=== PATIENT | male | born 1995 | race Caucasian/White ===

== ENCOUNTER 2023-01-07 11:41 | Outpatient (REF) | payer OTHER, SELFPAY | END 2023-01-07 11:42 | disposition home or self-care (01) | LOC: HO.CHCLDS 11:41 | PROVIDERS: Visit Provider Student in an Organized Health Care Education/Training Program | DX: R53.83 Other fatigue (principal); N04.9 Nephrotic syndrome with unspecified morphologic changes; E78.5 Hyperlipidemia, unspecified | CPT/HCPCS: 36415; 80048; 80061; 80076; 84443 ==

== ENCOUNTER 2023-03-09 11:35 | Outpatient (REF) | payer MEDICAID, SELFPAY ==
[2023-03-09 14:45] LABS: Alanine Aminotransferase 97 U/L (0-40); Albumin Level 3.9 g/dL (3.5-5.0); Alkaline Phosphatase 52 U/L (39-117); Anion Gap 9 (12-20); Aspartate Amino Transferase 37 U/L (5-37); Bilirubin Total 0.6 mg/dL (0.0-1.0); Blood Urea Nitrogen 14 mg/dL (9-16); Calcium 9.2 mg/dL (8.4-10.2); Carbon Dioxide 27 mmol/L (22-29); Chloride 107 mmol/L (96-108); Estimated Glomerular Filt Rate > 60; Glucose Random 79 mg/dL (60-115); Potassium 4.2 mmol/L (3.3-5.1); Sodium 139 mmol/L (135-145); Total Protein 6.8 g/dL (6.5-8.0)
[2023-03-10 04:37] LABS: ~HepC Num1 0.35 S/CO (0.00-0.79); ~Hepatitis C Antibody Nonreactive (Nonreactive)
[2023-03-10 04:47] LABS: HIV AB/AG Nonreactive (Nonreactive); HIV Num 1 0.05 S/CO (0.00-0.99)
== END 2023-03-09 11:36 | disposition home or self-care (01) ==
LOC: HO.CHCLDS 11:35
PROVIDERS: Visit Provider Family Medicine
DX: Z11.4 Encounter for screening for human immunodeficiency virus [HIV] (principal); R74.01 Elevation of levels of liver transaminase levels
CPT/HCPCS: 36415; 80053; 86803; 87389

== ENCOUNTER 2024-07-31 18:30 | Outpatient (REF) | payer MEDICAID, SELFPAY ==
--- OUTSIDE RECORDS SUMMARY | 2024-08-01 13:07 | XMS_ITS | Encounter Summary ---
Author Organization [employer] Address [address] [facility] 7t [place] [address] Care Team Providers Care Button Sawyer Name Role Phone Iesha Justice MD Primary Care Provider [phone] Encounter Details Date Type Department Care Team (Latest Contact Info) Description 07/31/2024 Travel Social History Tobacco Use Types Packs/Day Years Used Date Smoking Tobacco: Never Passive Smoke Exposure: Never Smokeless Tobacco: Never Alcohol Use Standard Drinks/Week Comments Never 0 (1 standard drink = 0.6 oz pur e alcohol) Sex and Gender Information Value Date Recorded Sex Assigned at Male 01/06/2023 3:08 PM EDT Legal Sex Male 3:04 PM EDT Gender Identity Male 01/06/2023 3:08 PM EDT Sexual Orientation Straight 01/06/2023 3: 08 PM EDT documented as of this encounter Plan of Treatment Not on file documented as of this encounter Visit Diagnoses Not on filedocumented in this encounter Care Teams Button Sawyer Relationship Specialty Start Date End Date Iesha Justice MD [address] [place] [address] PCP - General Family Medicine 03/03/23 documented as of this encounter
--- OUTSIDE RECORDS SUMMARY | 2024-08-01 13:07 | XMS_ITS | Encounter Summary ---
Author Organization [employer] Address [address] [facility] 7t [place] [address] Care Team Providers Care Band Ripsaw Operator Name Role Phone Iesha Justice MD Primary Care Provider [phone] Reason for Visit * Reason Onset Date Comments Nurse Triage 07/31/2024 Encounter Details Date Type Department Care Team ([facility] st Contact Info) Description 07/31/2024 Telephone [facility] MED[facility]INE [address] [place] [address] Iesha Justice MD [address] [place] [address] Nurse Triage Social History Tobacco Use Types Packs/Day Years [...] PM EDT documented as of this encounter Miscellaneous Notes * Telephone Encounter - Jazmine Brown RN - 07/31/2024 3:07 PM EDT Call returned to Sriram Clifford to triage below. Reports having pain on left testicles x few weeks. Pt also having pain on lower pelvic area. No redness, rash or noted swelling. Pt havinglower back pain over the weekend. Per pt still having mild back pain. Pt is having foamy urine. No odor, pain or burning with passing urine. Pt stopped Farxiga per recommendation of Psychiatric Rn. Last dose yesterday. Pt did have mild dizziness on Tuesday. No N/V or fever today. Pt advised of disposition, agrees to seek [facility] for exam as no sick on site availability on teams at time of call. Reviewed [facility] operating hours and that wait times vary. Reviewed home care advise, ER precautions and reasons to call back. Multiple (2) protocols were used on this call. Disposition for Call: See in Office or Video Visit Today Protocol Used: Scrotum Pain (Adult) Protocol-Based Disposition: See in Office or Video Visit Today Positive Triage Question: * Pain comes and goes (intermittent) and present > 24 hours * All higher-acuity triage questions were negative Protocol Used: Flank Pain (Adult) Protocol-Based Disposition: See in Office or Video Visit within 3 Days Positive Triage Question: * Mild pain (i.e., scale 1-3; does not interfere with normal activities) and present > 3 days * All higher-acuity triage questions were negative Care Advice Discussed: * Reassurance and Education - Flank Pain From Minor Injury * Reasons To Call Back - Fever over 100.4 F (38.0 C) - Burning with urination or blood in urine - You become worse * Telephone Encounter - Ana Macias - 07/31/2024 2:41 PM EDT Symptom: Testicle Symptoms Outcome: Talk to a nurse or provider within 15 minutes Reason: Pain in the testicle The caller accepted this outcome. documented in this encounter Plan of Treatment Not on file documented as of this encounter Visit Diagnoses Not on filedocumented in this encounter Care Teams Band Ripsaw Operator Relationship Specialty Start Date End Date Iesha Justice MD [address] [place] [address] PCP - General Family Medicine 03/03/23 documented as of this encounter
--- OUTSIDE RECORDS SUMMARY | 2024-08-01 13:07 | XMS_ITS | Clinical Summary ---
Author Organization [facility] Address [address] [address] Phone Care Team Providers Care Machine Assembler Supervisor Name Role Phone Iesha Justice MD Primary Care Provider [phone] Allergies Active Allergy Reactions Criticality Noted Date Comments Shrimp Extract Other (see comments) 08/22/2015 Medications furosemide (LASIX) 20 MG tablet Take 20 mg by mouth 1 (one) time each day Active Farxiga 10 MG tablet TAKE 1 TABLET BY MOUTH 1 (ONE) TIME EACH DAY IN THE MORNING 90 tablet 3 5 Active Additional Information Patient not taking.Reported on 08/01/2024 lisinopril 10 MG tabletIndicatio ns:IgA nephropathy,Per sistent proteinuria,Hem aturia syndrome,Acute cystitis without hematuria, not otherwise specified TAKE 2 TABLETS BY MOUTH EVERY DAY 180 tablet 5 Active Additional Information Patient not taking.Reported on 08/01/2024 lisinopril 5 MG tablet Take 1 tablet (5 mg total) by mouth 1 (one) time each day 90 tablet 3 5 08/02/19 26 Active Active Problems Problem Noted Date Diagnosed Date 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 [address] [address] Roger Ruelas MD IgA nephropathy (Primary Dx); Persistent proteinuria; Hematuria syndrome; Acute cystitis without hematuria, not otherwise specified 07/30/2024 Office Communication [facility] [address] [facility] [address] [place] [address] Kelsey, Addy 05/16/2024 Refill [facility] [address] [place] [address] Roger Ruelas MD IgA nephropathy; Persistent proteinuria; Hematuria syndrome; Acute cystitis without hematuria, not otherwise specified from Last 3 Months Immunizations Immunization Administration Dates Next Due DTaP 06/08/2002, 9,02/18/1998,07/30/1997,0 05/31/1997,04/03/1997 DTaP / HiB / IPV 02/18/1998,07/30/1997, 8,04/03/1997 HPV, Unspecified 10/20/2016,08/22/2015 Hep B, Adolescent or Pediatric 07/30/1997,1996,1996 IPV 07/03/1998,03/18/1998,05/31/1997 ,04/03/1997 MMR 04/25/2001,02/18/1998 Meningococcal MCV4P 11/12/2011 Tdap 05/20/2008 Varicella 07/21/2010,06/16/1999 Family History Medical History Relation Comments Cancer Mother Relation Status Comments Mother Social History Tobacco Use Types Packs/Day Years Used Date Smoking Tobacco: Never Smokeless Tobacco: Never Tobacco Cessation:Counseling Given: Not Answered Alcohol Use Standard Drinks/Week Comments Yes 0 (1 standard drink = 0.6 oz pur e alcohol) Sex and Gender Information Value Date Recorded Sex Assigned at Not on file Legal Sex Male 5:06 PM EST Gender Identity Not on file Sexual Orientation Not on file Last Filed Vital Signs Vital Sign Reading Time Taken Comments Blood Pressure 119/78 08/01/2024 10:23 AM EDT Pulse 74 08/01/2024 10:23 AM EDT Temperature - - Respiratory Rate - - Oxygen Saturation 99% 08/01/2024 10:23 AM EDT Inhaled Oxygen Concentration - - Weight 88.3 kg (194 lb 9.6 oz) 08/01/2024 10:23 AM EDT Height - - Body Mass Index - - Plan of Treatment Upcoming Encounters Date Type Department Care Team (Late st Contact Info) Description 11/21/2024 4:15 PM EDT Office Visit [facility] [address] [facility] [address] [place] [address] Roger Ruelas MD [address] [facility] [address] [place] [address] Health Maintenance Due Date Last Done Comments Pneumococcal Vaccine: Peds ( 0 to 5 Years) and At-Risk Patients (6 to 49 Years) (1 of 2 - PCV) 12/26/2015 Influenza Vaccine (Season Ended) 2024 Hepatitis B Vaccine Completed 07/30/1997, 04/03/1997, 1996 Procedures Procedure Name Priority Date/Time Associated Diagnosis Comments RENAL FUNCTION PANEL Routine 07/30/2024 1:35 PM EDT from Last 3 Months Results * (ABNORMAL) Renal Function Panel (07/30/2024 1:35 PM EDT) Glucose 87 70 - 99 mg/dL [facility] BUN 18 6 - 20 mg/dL [facility] Creatinine 1.28(H) 0.76 - 1.27 mg/dL [facility] eGFR CKD-EPI CR 2020 79 >59 mL/min/1.7 3 [facility] BUN/Creatinine Ratio 14 9 - 20 [facility] Sodium 139 134 - 144 mmol/L [facility] Potassium 4.4 3.5 - 5.2 mmol/L [facility] Chloride 100 96 - 106 mmol/L [facility] Bicarbonate (CO2) 20 20 - 29 mmol/L [facility] Calcium 9.4 8.7 - 10.2 mg/dL [facility] Albumin 4.2(L) 4.3 - 5.2 g/dL [facility] Phosphorus 4.1 2.8 - 4.1 mg/dL [facility] 07/30/2024 1:35 PM EDT 07/30/2024 us Roger Ruelas MD LAB BLOOD ORDERABLES Final Re sult [facility] [address] [place] [phone] from Last 3 Months Insurance Medicaid [place] Medicaid [place] Care Teams Machine Assembler Supervisor Relationship Specialty Start Date End Date Iesha Justice MD [address] [place] [phone] PCP - General Family Medicine 03/02/23
--- OUTSIDE RECORDS SUMMARY | 2024-08-01 13:07 | XMS_ITS | Clinical Summary ---
Author Organization [employer] Address [address] [facility] [address] 7[address] [place] [address] Care Team Providers Care Activity Therapist Name Role Phone Iesha Justice MD Primary Care Provider [phone] Allergies Active Allergy Reactions Criticality Noted Date Comments Shellfish-Derived Products 3 Medications lisinopril 10 MG tablet Take 1 tablet (10 mg) by mouth in the morning. 90 tablet 1 03/03/2023 Active dapagliflozin (Farxiga) 10 MG Take 1 tablet (10 mg) by mouth in the morning. 90 tablet 1 03/03/2023 Active albuterol 108 (90 Base) MCG/ACT inhaler Inhale 2 puffs every 4 (four) hours if needed for wheezing. 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 03/03/2023 Vitamin D deficiency 02/21/2018 Nephrotic syndrome 02/17/2018 Body mass index (BMI) 30.0-30.9, adult 8 03/03/2023 Encounters Date Type Department Care Team Description 08/01/2024 Telephone [facility] [address] [place] [address] Iesha Justice MD U/s order 07/31/2024 6:20 PM EDT Office Visit [facility] [address] [place] [address] Clemente Spicer MD Groin pain, left 07/31/2024 Travel 07/31/2024 Telephone [facility] [address] [place], [place] [phone] Iesha Justice MD Nurse Triage 06/15/2024 Population Health Risk Score [facility] Department [address] [address] Provider, Population Health Generic 06/08/2024 Telephone [facility] [address] [place], [place] [phone] Iesha Justice MD Referral 05/16/2024 Refill [facility] [address] [place], [place] [phone] Iesha Justice MD from Last 3 Months Immunizations Name Administration Dates Next Due DTaP 06/08/2002, 9,02/18/1998,07/30/1997,0 05/31/1997,04/03/1997 DTaP / HiB / IPV 02/18/1998,07/30/1997, 8,04/03/1997 HPV 9-Valent 10/20/2016,08/22/2015 HPV, Unspecified 10/20/2016,08/22/2015 Hep B, Adolescent or Pediatric 07/30/1997,1996,1996 Hib (HbOC) 02/18/1998,07/30/1997,05/31/1997 ,04/03/1997 IPV 07/03/1998,03/18/1998,05/31/1997 ,04/03/1997 MMR 04/25/2001,02/18/1998 Meningococcal MCV4P [id number] 11/12/2011 Tdap 01/17/2024,05/20/2008 Varicella 07/21/2010,06/16/1999 Social History Tobacco Use Types Packs/Day Years Used Date Smoking Tobacco: Never Passive Smoke Exposure: Never Smokeless Tobacco: Never Tobacco Cessation:Counseling Given: Not Answered Alcohol Use Standard Drinks/Week Comments Never 0 (1 standard drink = 0.6 oz pur e alcohol) Sex and Gender Information Value Date Recorded Sex Assigned at Male 01/06/2023 3:08 PM EDT Legal Sex Male 3:04 PM EDT Gender Identity Male 01/06/2023 3:08 PM EDT Sexual Orientation Straight 01/06/2023 3: 08 PM EDT Last Filed Vital Signs Vital Sign Reading Time Taken Comments Blood Pressure 140/90 07/31/2024 5:54 PM EDT Pulse 84 07/31/2024 5:54 PM EDT Temperature 36.6 ??C (97.8 ??F) 07/31/2024 5:54 PM ED T Respiratory Rate 14 07/31/2024 5:54 PM EDT Oxygen Saturation 98% 03/03/2023 1:22 PM EST Inhaled Oxygen Concentration - - Weight 89.2 kg (196 lb 9.6 oz) 07/31/2024 5:54 P M EDT Height 160.7 cm (5' 3.25 ) 07/31/2024 5:54 PM ED T Body Mass Index 34.55 07/31/2024 5:54 PM EDT Plan of Treatment Health Maintenance Due Date Last Done Comments Depression Screening 1996 SDOH Screening 1996 Alcohol/Substance Use Screening 2008 Family Planning (PISQ) 12/26/2011 Pneumococcal Vaccine: Pediatrics (0 to 5 Years) and At-Risk Patients (6 to 49) Years) (1 of 2 - PCV) 12/26/2015 Zoster Vaccines (1 of 2) 12/26/2015 COVID-19 Vaccine ( - season) 2023 04/21/2021, 08/07/2020, 07/17/2020 Influenza Vaccine (#1) 2023 Tobacco Screening 01/16/2025 01/17/2024 Lipid Panel 01/08/2028 01/07/2023 DTaP/Tdap/Td Vaccines (8 - Td or Tdap) 01/16/2034 01/17/2024, 05/20/2008, 06/08/2002, Additional history exists RSV Patients and Patients Aged 60 years or older (1 - 1-dose 75+ series) 12/26/2071 Hepatitis B Vaccines Completed 07/30/1997, 04/03/1997, 1996 HIB Vaccines Completed 02/18/1998, 02/02, 07/30/1997, Additional history exists IPV Vaccines Completed 07/03/1998, 03/04, 02/18/1998, Additional history exists Meningococcal Vaccine Aged Out 11/12/2011 No brianne fabian eligible based on patient's age to complete this topic HPV Vaccines Discontinued 10/20/2016, 10/02, 08/22/2015, Additional history exists HIV Screening Completed 03/09/2023 Hepatitis C Screening Completed 03/09/2023 Hepatitis A Vaccines Aged Out No long er eligible based on patient's age to complete this topic RSV under 20 months Aged Out No longe r eligible based on patient's age to complete this topic Rotavirus Vaccines Aged Out No longer eligible based on patient's age to complete this topic Procedures Procedure Name Priority Date/Time Associated Diagnosis Comments POCT URINALYSIS DIPSTICK Routine 07/31/2024 7:06 PM EDT Groin pain, left HEPATITIS C ANTIBODY Routine 03/09/2023 11:36 AM EST Encounter for health-related screening HIV 1/2 ANTIGEN/ANTIBODY, FOURTH GENERATION W/RFL Routine 03/09/2023 11:36 AM EST Encounter for health-related screening LIPID PANEL, STANDARD Routine 01/07/2023 11:45 AM EDT Fatigue, unspecified type from Last 3 Months or Most Recently Relevant to Health Maintenance Results * (ABNORMAL) POCT Urinalysis (07/31/2024 7:06 PM EDT) Color, UA Yellow Clarity, UA Clear Glucose, UA 1+ 70+ Comment:100mg Bilirubin, UA Negative Ketones, UA Negative Spec Grav, UA 1.030 Blood, UA Positive(A) Negative, None Detected Comment:Moderate pH, UA 6.0 Protein, UA 3+ 500+++ Urobilinogen, UA 0.2 Leukocytes, UA Negative Negative, Rare, Trace Nitrite, UA Negative Negative, None Detected QC Media Lot # [id number] Lot# Expiration Date [id number] Urine 07/31/2024 7:06 PM EDT Clemente Spicer MD POINT OF CARE TEST ENTER/EDIT OR DERABLES Final Result * Hepatitis C Ab (03/09/2023 11:36 AM EST) Hepatitis C Antibody Nonreactive Nonreactive [facility] Comment:Antibodies to HCV no t detected; does not exclude early acuteHCV infection. Blood Venous blood specimen / Unknown 03/09/2023 11:36 AM EST 03/09/2023 2:04 PM EST Iesha Justice MD LAB BLOOD ORDERABLES Final Re sult [facility] [address] [place] [phone] * HIV-1/2 Antigen and Antibodies, Fourth Generation, with Reflexes (03/09/2023 11:36 AM EST) HIV AB/AG Nonreactive Nonreactive [facility] Comment:HIV-1 p24 Ag and/or HIV-1/HIV-2 Ab not detected.A test result that is nonreactive does not exclude thepossibility of exposure to or infection with HIV-1 and/orHIV-2. Nonreactive results in this assay for individualswith prior exposure to HIV-1 and/or HIV-2 may be due toantigen and antibody levels that are below the limit ofdetection of this assay.The [employer] Controls HIV Ag/Ab Combo assay result andsupplemental assay results should be interpreted inconjunction with the patient's clinical presentation,history and other laboratory results. If the results areinconsistent with clinical evidence, additional testing issuggested to confirm the result. Blood Venous blood specimen / Unknown 03/09/2023 11:36 AM EST 03/09/2023 2:04 PM EST us Iesha Justice MD LAB BLOOD ORDERABLES Final Re sult [facility] [address] [place] [phone] * (ABNORMAL) Lipid Panel, Standard (01/07/2023 11:45 AM EDT) Triglycerides 79 <150 mg/dL [facility] Comment:Desirable Triglyceri de: less than 150 mg/dLBorderline High Triglyceride 150-199 mg/dLHigh Triglyceride: 200-499 mg/dLVery High Triglyceride: greater than or equal to 5OO mg/dL Cholesterol 169 <200 mg/dL [facility] Comment:Desirable Cholestero l: less than 200 mg/dLBorderline High Cholesterol: 200-239 mg/dLHigh Cholesterol: greater than 239 mg/dL LDL Cholesterol Calculated 105(H) <100 mg/dL [facility] Comment:Desirable LDL: less than 100 mg/dLNear Optimal/Above Optimal LDL: 110- 129 mg/dLBorderline High LDL: 130-159 mg/dLHigh LDL: 160-189 mg/dLVery High LDL: greater than or equal to 190 mg/dL HDL Cholesterol 49 >40 mg/dL [facility] Comment:Desirable HDL: great er than 40 mg/dL Note: This HDL assay may give artificially low results in patients with liver disease. Blood Venous blood specimen / Unknown 01/07/2023 11:45 AM EDT 01/07/2023 2:13 PM EDT us Neris Casas MD LAB BLOOD ORDERABLES Final Resul t [facility] [address] [place] [phone] [phone] from Last 3 Months or Most Recently Relevant to Health Maintenance [place] [address] [place] [address] [employer] Care Teams Activity Therapist Relationship Specialty Start Date End Date Iesha Justice MD [address] [place] [phone] PCP - General Family Medicine 03/03/23
--- OUTSIDE RECORDS SUMMARY | 2024-08-01 13:07 | XMS_ITS | Encounter Summary ---
Author Organization [employer] Address [address] [facility] 7t [place] [address] Care Team Providers Care Metal Technician Name Role Phone Iesha Justice MD Primary Care Provider [phone] Reason for Referral * Imaging (Urgent) - Authorized Specialty Diagnoses / Procedures Referred By Contac t Referred To Contact Radiology Diagnoses Groin pain, left Procedures US Scrotum Clemente Spicer MD [address] [place] [phone] Phone: tel: fax: [facility] Referral ID Status Reason Start Date Expiration Date V isits Requested Visits Authorized [id number] Authorized 07/31/2024 07/31/2025 1 1 Encounter Details Date Type Department Care Team (Late st Contact Info) Description 07/31/2024 6:20 PM EDT Office Visit [facility] [address] [place] [phone] Clemente Spicer MD [address] [place] [phone] Groin pain, left Social History Tobacco Use Types Packs/Day Years [...] PM EDT documented as of this encounter Last Filed Vital Signs Vital Sign Reading Time Taken Comments Blood Pressure 140/90 07/31/2024 5:54 PM EDT Pulse 84 07/31/2024 5:54 PM EDT Temperature 36.6 ??C (97.8 ??F) 07/31/2024 5:54 PM ED T Respiratory Rate 14 07/31/2024 5:54 PM EDT Oxygen Saturation - - Inhaled Oxygen Concentration - - Weight 89.2 kg (196 lb 9.6 oz) 07/31/2024 5:54 P M EDT Height 160.7 cm (5' 3.25 ) 07/31/2024 5:54 PM ED T Body Mass Index 34.55 07/31/2024 5:54 PM EDT documented in this encounter Progress Notes * Clemente Spicer MD - 07/31/2024 6:20 PM EDT Subjective History was provided by the patient. Sriram Clifford is a 28 y.o. male who presents for evaluation of left-sided groin discomfort. Denies pain in the actual testicles, but in the area proximal to the left testicle. Symptoms initially started 2 weeks ago while doing a weighted hip trust exercise. Pain was initially very mild, but became more noticeable for the past 1 week. Denies penile discharge. Reports mild dysuria and foamy urine (which is common for him). Denies penile discharge or gross hematuria (although he oftenhas microscopic hematuria on UA). Underlying IgA nephropathy and chronic proteinuria. Followed by Nephrology (Dr. Ruelas). Scheduled to see him tomorrow. IgA nephropathy diagnosed at age 13-14. Denies F/C/N/V/D. Denies groin bulging. Never been sexually active. BUN/Cr 21/04.28 (07/30/2024). Objective Vitals: 07/31/24 1754 BP: (!) 140/90 BP Location: Left arm Patient Position: Sitting BP Cuff Size: Adult Pulse: 84 Resp: 14 Temp: 97.8 ??F (36.6 ??C) TempSrc: Oral Weight: 196 lb 9.6 oz (89.2 kg) Height: 5' 3.25 (1.607 m) Physical Exam Vitals reviewed. Constitutional: Appearance: Normal appearance. HENT: Head: Normocephalic and atraumatic. Right Ear: External ear normal. Left Ear: External ear normal. Nose: Nose normal. Mouth/Throat: Mouth: Mucous membranes are moist. Pharynx: Oropharynx is clear. Eyes: Extraocular Movements: Extraocular movements intact. Conjunctiva/sclera: Conjunctivae normal. Pulmonary: Effort: Pulmonary effort is normal. Abdominal: General: Abdomen is flat. There is no distension. Palpations: Abdomen is soft. Tenderness: There is no abdominal tenderness. There is no right CVA tenderness, left CVA tenderness, guarding or rebound. Genitourinary: Comments: Uncircumcised penis. No testicular mass, edema, or tenderness. Cremasteric reflex present. No inguinal hernia or LAD. Mild tenderness at the left groin (area proximal to left testicle), butno enlargement or mass of epididymis. Musculoskeletal: General: Normal range of motion. Cervical back: Normal range of motion and neck supple. Skin: General: Skin is warm and dry. Neurological: General: No focal deficit present. Mental Status: He is alert and oriented to person, place, and time. Psychiatric: Mood and Affect: Mood normal. Behavior: Behavior normal. Diagnoses and all orders for this visit: Groin pain, left - POCT Urinalysis - Culture, Urine, Routine; Future - US Scrotum; Future Patient presents to [facility] due to left groin pain for 2 weeks Underlying IgA nephropathy and chronic proteinuria No evidence of torsion or epididymitis on clinical exam Will pursue urgent Scrotal U/S to further evaluate Low risk for epididymitis given no sexual activity No clinical evidence of mass or inguinal hernia/LAD Will be seeing Nephrology tomorrow Possible soft tissue injury from weighted exercises Recommend warm compress Advised to monitor for any worsening symptoms Indications for UC/ER use reviewed Advised to contact the clinic if persistent or worsening symptoms documented in this encounter Plan of Treatment Scheduled Orders Name Type Priority Associated Diagnoses Orde r Schedule Culture, Urine, Routine Microbiology Routine Groin pain, left Expected: 07/31/2024 (Approximate), Expires: 07/31/2025 US Scrotum Imaging Urgent Groin pain, left Expected: 07/31/2024, Expires: 07/31/2025 documented as of this encounter Procedures Procedure Name Priority Date/Time Associated Diagnosis Comments POCT URINALYSIS DIPSTICK Routine 07/31/2024 7:06 PM EDT Groin pain, left documented in this encounter Results * (ABNORMAL) POCT Urinalysis (07/31/2024 7:06 [...] Media Lot # [id number] Lot# Expiration Date [id number] Urine 07/31/2024 7:06 PM EDT Clemente Spicer MD POINT OF CARE TEST ENTER/EDIT OR DERABLES Final Result documented in this encounter Visit Diagnoses Diagnosis Groin pain, left documented in this encounter Care Teams Metal Technician Relationship Specialty Start Date End Date Iesha Justice MD [address] [place] [phone] PCP - General Family Medicine 03/03/23 documented as of this encounter
--- OUTSIDE RECORDS SUMMARY | 2024-08-01 13:07 | XMS_ITS | Clinical Summary ---
Author Organization [facility] Address [address] [place] [address] Care Team Providers Care Neighborhood Aide Name Role Phone Snow Justice MD Primary Care Provider Encounters Date Type Department Care Team Description 06/08/2024 Telephone [facility] Infectious Disease [address] [place] [address] [address] [place] [address] Add, Refmd Other (APPOINTMENT) from Last 3 Months Immunizations Name Administration Dates Next Due COVID-19, mRNA (Pfizer Pre F all 2022) Monovalent, 30 mcg/0.3 ml 08/07/2020,07/17/2020 Covid-19, mRNA (Pfizer Pre F all 2022) Monovalent, 30 mcg/0.3 ml jose angel-sucrose (12+) 04/21/2021 HPV9 (Gardasil 9) 10/20/2016,08/22/2015 Hep B (pedi) 07/30/1997,04/03/1997,1996 Hib (HbOC) 02/18/1998,199 8,05/31/1997,04/03 IPV 07/03/1998,199 8,05/31/1997,04/03 MMR 04/25/2001,02/18/1998 Meningococcal ACWY (Menactra) 11/12/2011 Tdap 01/17/2024,05/20/2008 Varicella 07/21/2010,06/16/1999 Yellow Fever 07/18/2024 Social History Tobacco Use Types Packs/Day Years Used Date Smoking Tobacco: Never Assessed Sex and Gender Information Value Date Recorded Sex Assigned at Not on file Legal Sex Male 2:03 PM EST Gender Identity Not on file Sexual Orientation Not on file Plan of Treatment Health Maintenance Due Date Last Done Comments Hepatitis C Screening 1996 HPV Vaccine (3 - Male 3-dose series) 01/12/2017 10/20/2016, 08/22/2015 COVID-19 Vaccine ( - season) 2023 04/21/2021, 08/07/2020, 07/17/2020 Influenza (#1) 2023 DTaP/Tdap/Td (3 - Td or Tdap) 01/16/2034 01/17/2024, 05/20/2008 Zoster (Shingrix) (1 of 2) 2046 07/21/2010, Hep B Completed 07/30/1997, 03/06, 1996 Hib Completed 02/18/1998, 07/04, 05/31/1997, Additional history exists Meningococcal ACWY Aged Out 11/12/2011 No longer eligible based on patient's age to complete this topic Hep A Aged Out No longer eligi ble based on patient's age to complete this topic Pneumococcal Aged Out No longer eligi ble based on patient's age to complete this topic Insurance MEDICAID Care Teams Neighborhood Aide Relationship Specialty Start [place] [address] PCP - General Family Medicine 06/08/24
--- OUTSIDE RECORDS SUMMARY | 2024-08-01 13:07 | XMS_ITS | Encounter Summary ---
Author Organization [employer] Address [address] [place] [address] 7[address] [place] [address] Care Team Providers Care Supervisor Metal Fabricating Name Role Phone Iesha Justice MD Primary Care Provider [phone] Reason for Visit * Reason Comments Med Change Request Encounter Details Date Type Department Care Team ([facility] st Contact Info) Description 04/24/2023 Refill [facility] [address] [place], [place] [phone] Iesha Justice MD [address] [place] [address] Social History Tobacco Use Types Packs/Day Years [...] on filedocumented in this encounter Care Teams Supervisor Metal Fabricating Relationship Specialty Start Date End Date Iesha Justice MD [address] [place] [address] PCP - General Family Medicine 03/03/23 documented as of this encounter
--- OUTSIDE RECORDS SUMMARY | 2024-08-01 13:07 | XMS_ITS | Encounter Summary ---
Author Organization [facility] Address [address] [place] [phone] Phone Care Team Providers Care Economics Faculty Member Name Role Phone Iesha Justice MD Primary Care Provider [phone] Reason for Referral * Consultation (Routine) - Pending Review Specialty Diagnoses / Procedures Referred By Crystal villegas Referred To Contact Urology Diagnoses IgA nephropathy Persistent proteinuria Roger Ruelas MD [address] [address] Phone: tel: fax: Referral ID Status Reason Start Date Expiration Date Visits Requested Visits Authorized [id number] Pending Review Specialty Services Required 08/01/2024 08/01/2025 1 1 Encounter Details Date Type Department Care Team (Late st Contact Info) Description 08/01/2024 10:15 AM EDT Office Visit [facility] [address] [address] Roger Ruelas MD [address] [place] [phone] IgA nephropathy (Primary Dx); Persistent proteinuria; Hematuria syndrome; Acute cystitis without hematuria, not otherwise specified Social History Tobacco Use Types Packs/Day Years Used Date Smoking Tobacco: Never Smokeless Tobacco: Never Alcohol Use Standard Drinks/Week Comments Yes 0 (1 standard drink = 0.6 oz pur e alcohol) Sex and Gender Information Value Date Recorded Sex Assigned at Not on file Legal Sex Male 5:06 PM EST Gender Identity Not on file Sexual Orientation Not on file documented as of this encounter Last Filed [...] - - Body Mass Index - - documented in this encounter Patient Instructions * Patient Instructions* Roger Ruelas MD - 08/01/2024 10:15 AM EDT No NSAIDS - Do not take non-steroidal anti-inflammatory medications (NSAIDS) such as Ibuprofen (Advil, Motrin, etc), Naproxen (Aleve, etc), Celecoxib (Celebrex) or Ketoprofen. These common arthritis medications can cause permanent kidney damage or worsen your kidney damage. For mild occasional pain, Acetaminophen (Tylenol, etc) is safe for your kidneys. Sodium and Your CKD Diet: How to Spice Up Your Cooking What is sodium? Sodium is a mineral found naturally in foods and is the major part of table salt. What are the effects of eating too much sodium? When your kidneys are not healthy, extra sodium and fluid build up in your body. This can cause swollen ankles, puffiness, a rise in blood pressure, shortness of breath, and/or fluid around your heart and lungs. See the following table for suggestions on how to reduce sodium in your diet. LIMIT THE [AMOUNT OF... FOOD TO LIMIT BECAUSE OF THEIR HIGH SODIUM CONTENT ACCEPTABLE SUBSTITUTES SALT & SALT SEASONINGS Table salt Seasoning salt Garlic salt Onion salt Celery salt Lemon pepper Lite salt Meat tenderizer Bouillon cubes Flavor enhancers Fresh garlic, fresh onion, garlic powder, onion powder, black [pepper, lemon juice, low-sodium/salt-free seasoning blends, vinegar SALTY FOODS Barbecue sauce Steak sauce Soy sauce Teriaky sauce Oyster sauce Salted Snacks such as Crackers Potato chips [place] chips Pretzels Tortilla chips Nuts Popcorn [place] seeds Homemade or low- sodium sauces and salad dressings; Vinegar, dry mustard, unsalted popcorn, pretzels, tortilla or corn chips Cured Foods Ham Salt pork Jade Sauerkraut Pickles, pickle relish Lox & Velazquez Olives Fresh beef, veal, pork, poultry, fish, eggs [place] MEATS Hot Dogs Cold cuts, deli meats Pastrami Sausage Corned beef Spam Low-salt deli meats PROCESSED FOODS Buttermilk Cheese Canned: Soups Tomato products Vegetable juices Canned vegetables Convenience Foods such as: TV Dinners Canned raviolis [place] Macaroni & Cheese Spaghetti Frozen prepared foods Fast foods Natural cheese (1-2 oz Per week) Homemade or emily,1- sodium soups, canned food without added salt Homemade casseroles without added salt, made with fresh or raw vegetables, fresh meat, raul, pasta, or unsalted canned vegetables Some salt or sodium is needed for body water balance. But when your kidneys lose the ability to control sodium and water balance, you may experience the following: thirst fluid gain high blood pressure discomfort during dialysis By using less sodium in your diet, you can control these problems. Hints to keep your sodium intake down Cook with herbs and spices instead of salt. (Refer to Spice Up Your Cooking section for further suggestions.) Read food labels and choose those foods low in sodium. Avoid salt substitutes and specialty low-sodium foods made with salt substitutes because they are high in potassium. When eating out, ask for meat or fish without salt. Ask for gravy or sauce on the side; these may contain large amounts of salt and should be used in small amounts . Limit use of canned, processed and frozen foods. Some information about reading labels Understanding the terms: Sodium Free - Only a trivial amount of sodium per serving. Very Low Sodium - 35 mg or less per serving. Low Sodium - 140 mg or less per serving. Reduced Sodium - Foods in which the level of sodium is reduced by 25%. Light or Lite in Sodium - Foods in which the sodium is reduced by at least 50% . Simple rule of thumb : If salt is listed in the first five ingredients, the item is probably too high in sodium to use. All food labels now have milligrams (mg) of sodium listed. Follow these steps when reading the sodiwn information on the label: 1. Know how much sodium you are allowed each day. Remember that there are 1000 milligrams (mg) in 1gram. For [id number], if your diet prescription is 2 grams of sodium , your limit is 2000 milligrams per day. Consider the sodium value or other food to be eaten during the day. 2. Look at the package label. Check the serving size. Nutrition values are expressed per silvia g. How does this compare to your total daily allowance? If the sodium level is 500 mg or more per serving, the item is not a good choice. 3. Compare labels of similar products. Select the lowest sodium level for the same serving size. How to Spice Up Your Cooking Giving up salt does not mean giving up flavor. Learn to season your food with herbs and spices. Be creative and experiment for a new and exciting flavor. What kinds of spices and herbs should I use instead of salt to add flavor? Try the following spices with the foods listed. Allspice: Use with beef, fish, beets, cabbage, canots, peas, fruit. Basil: Use with beef, pork, most vegetables. [place]: Use with beef, pork, most vegetables. [place]: Use with beef, pork, green beans, cauliflower, cabbage, beets, asparagus, and in dips and marinades. Cardamom: Use with fruit and in baked goods. Cardona: Use with beef, chicken, pork, fish, green beans, carrots and in marinades. Dill: Use with beef, chicken, green beans, cabbage, carrots, peas and in dips. She: Use with beef, chicken, pork, green beans, cauliflower and eggplant. Marjoram: Use with beef, chicken, pork, green beans, cauliflower and eggplant. Eloise: Use with chicken, pork, cauliflower, peas and in marinades. Thyme: Use with beef, chicken, pork, fish, green beans, beets and carrots. Ilya: Use with chicken, pork, eggplant and in dressing. Tarragon: Use with fish, chicken, asparagus, beets, cabbage, cauliflower and in marinades. Tips for cooking with herbs and spices Purchase spices and herbs in small amounts . When they sit on the shelf for years they lose their flavor. Use no more than ?? teaspoon of dried spice (?? of fresh) per pound of meat. Add ground spices to food about 15 minutes before the end of the cooking period. Add whole spices to food at least one hour before the end of the cooking period. Combine herbs with oil or butter, set for 30 minutes to bring out their flavor, then brush on foodswhile they cook, or brush meat with oil and sprinkle herbs one hour before coolcing. Crush dried herbs before adding to foods. Can I use salt substitutes? Caution! If you are told to limit potassium in your diet, be very cautious about using salt substitutes because most of them contain some form of potassium. Check with your doctor or dietitian beforeusing and salt substitute. [place] and create your own seasoning containing those spices that you like. If you would like to become a volunteer and find out more about what's happening where you live, contact your local [facility] Affiliate. Blood pressure monitoring education: Monitor home blood pressure values after sitting for 5 minutes with back and arm support. Keep a log. Bring your log and blood pressure cuff to your next visit. documented in this encounter Plan of Treatment Upcoming Encounters Date Type Department Care Team (Late st Contact Info) Description 11/21/2024 4:15 PM EDT Office Visit [facility] [address] [address] Roger Ruelas MD [address] [address] Scheduled Orders Name Type Priority Associated Diagnoses Orde r Schedule Urinalysis with microscopic Lab Today IgA nephropathy Persistent proteinuria Hematuria syndrome Expected: 08/01/2024, Expires: 08/31/2025 Urine Albumin / Creatinine Ratio Lab Today IgA nephropathy Persistent proteinuria Hematuria syndrome Expected: 08/01/2024, Expires: 08/31/2025 Urine Protein / creatinine ratio Lab Today IgA nephropathy Persistent proteinuria Hematuria syndrome Expected: 08/01/2024, Expires: 08/31/2025 Scheduled Referrals Name Type Priority Associated Diagnoses Orde r Schedule Ambulatory referral to Urology Outpatient Referral Routine IgA nephropathy Persistent proteinuria Expected: 08/08/2024, Expires: 08/31/2025 documented as of this encounter Visit Diagnoses Diagnosis IgA nephropathy- Primary Persistent proteinuria Hematuria syndrome Acute cystitis without hematuria, not otherwise specified documented in this encounter Care Teams Economics Faculty Member Relationship Specialty Start Date End Date Iesha Justice MD [address] [place] [id number] PCP - General Family Medicine 03/02/23 documented as of this encounter
--- OUTSIDE RECORDS SUMMARY | 2024-08-01 13:07 | XMS_ITS | Encounter Summary ---
Author Organization [employer] Address [address] [facility] 7t [place] [address] Care Team Providers Care Enrollment Management Manager Name Role Phone Iesha Justice MD Primary Care Provider [phone] Reason for Visit * Reason Onset Date Comments New Patient 01/18/2023 Encounter Details Date Type Department Care Team (Late st Contact Info) Description 01/18/2023 Telephone [facility] MEDICINE [address] [place], [place] [phone] Everton Aguillon MD [address] [place] [address] New Patient Social History Tobacco Use Types Packs/Day Years Used Date Smoking Tobacco: Never Assessed Sex and Gender Information Value Date Recorded Sex Assigned at Male 01/06/2023 3:08 PM EDT Legal Sex Male 3:04 PM EDT Gender Identity Male 01/06/2023 3:08 PM EDT Sexual Orientation Straight 01/06/2023 3: 08 PM EDT documented as of this encounter Miscellaneous Notes * Telephone Encounter - Joe Su - 01/20/2023 3:02 PM EDT New Patients Par Joe Barney called to schedule New patient appt, pt did not answer left voicemail to give a call at [phone]. * Telephone Encounter - Joe Su - 01/18/2023 12:50 PM EDT Pt has been transfer over to wait list for [facility]GICAL [facility]. EFFECTIVE SINCE 01/18/2023 documented in this encounter Plan of Treatment Not on file documented as of this encounter Visit Diagnoses Not on filedocumented in this encounter Care Teams Enrollment Management Manager Relationship Specialty Start Date End Date Iesha Justice MD [address] [place] [id number] PCP - General Family Medicine 03/03/23 documented as of this encounter
--- OUTSIDE RECORDS SUMMARY | 2024-08-01 13:07 | XMS_ITS | Clinical Summary ---
Author Organization [facility] Address [address] [place] [address] Care Team Providers Care Scheduling Assistant Name Role Phone Margareth Waller MD Primary Care Provider [phone] Surgical History Surgery Date Site/Laterality Comments OTHER SURGICAL HISTORY 2018 PROCEDURE: GA RENAL NDSC NEPHROS/PYELOSTOMY BIOPSY Medical History Medical History Date Comments Hematuria 05/08/2010 DX:Hematuria; CO MMENT: 05/2010 - Was seen by nephrology for hematuria Wheezing 07/18/2009 DX:Wheezing Family History Medical History Relation Name Comments Asthma Father Diabetes Maternal Grandmother Asthma Mother Relation Name Status Comments Brother 1 Alive Ramesh Avila Brother 2 Alive Father Alive Ramesh Avila Maternal Grandfather Alive Maternal Grandmother Mother Alive Alondra Whitenandez 07/19/71 Paternal Grandfather Alive Paternal Grandmother Alive Sister Alive Elza Buchananyamilex martinez 11/19/00 Social History Tobacco Use Types Packs/Day Years Used Date Smoking Tobacco: Never Smokeless Tobacco: Never Alcohol Use Standard Drinks/Week Comments No 0 (1 standard drink = 0.6 oz pur e alcohol) Sex and Gender Information Value Date Recorded Sex Assigned at Not on file Legal Sex Male 9:51 AM EST Gender Identity Not on file Sexual Orientation Not on file Obstetrics History Plan of Treatment Health Maintenance Due Date Last Done Comments COVID-19 Vaccine (#1) 2001 Pneumococcal Vaccine: Pediatrics (0 to 5 Years) and At-Risk Patients (6 to 64 Years) (1 of 2 - PCV) 12/26/2015 HPV Vaccines (3 - Male 3-dose series) 01/12/2017 10/20/2016, 08/22/2015 DTaP,Tdap,and Td Vaccines (7 - Td or Tdap) 05/20/2018 05/20/2008, 06/08/2002, 07/03/1998, Additional history exists Cholesterol Screening (Lipid Panel) 03/02/2022 Depression Screening 03/02/2022 HIV Screening 03/02/2022 Hepatitis C Screening 03/02/2022 Social Influencers of Health Screening 03/02/2022 Influenza Vaccine (Season Ended) 2024 Hepatitis B Vaccines Completed 07/30/1997, 04/03/1997, 1996 HIB Vaccines Completed 02/18/1998, 07/04, 05/31/1997, Additional history exists IPV Vaccines Completed 07/03/1998, 03/04, 02/18/1998, Additional history exists MMR Vaccines Completed 04/25/2001, 02/18/1998 Varicella Vaccines Completed 07/21/2010, 06/16/1999 Meningococcal ACWY Vaccine Aged Out 11/12/2011 N o longer eligible based on patient's age to complete this topic Hepatitis A Vaccines Aged Out No long er eligible based on patient's age to complete this topic Meningococcal B Vaccine Aged Out No l onger eligible based on patient's age to complete this topic RSV Immunization Patients Under 20 months Aged Out No longer eligible based on patient's age to complete this topic Advance Directives Documents on File Type Date Recorded 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
--- OUTSIDE RECORDS SUMMARY | 2024-08-01 13:07 | XMS_ITS | Encounter Summary ---
Author Organization [employer] Address [address] [facility] 7t [place] [address] Care Team Providers Care Bisque Placer Name Role Phone Iesha Justice MD Primary Care Provider [phone] Reason for Visit * Reason Onset Date Comments U/s order 08/01/2024 Encounter Details Date Type Department Care Team ([facility] st Contact Info) Description 08/01/2024 Telephone [facility] MED[facility] [address] [place] [address] Iesha Justice MD [address] [place] [address] U/s order Social History Tobacco Use Types Packs/Day Years [...] encounter Miscellaneous Notes * Telephone Encounter - Sunita Adkins RN - 08/01/2024 11:22 AM EDT See ,message below. RN will forward to Steam Frame Operator assisting with this to review and adviseas needed. Tc from [facility] with [facility] confirms received an order for an urgent Ultra sound of the scrotum. Order states to be scheduled at [facility] so they want to make sure that it is okay to schedulewith [facility]. Secondly they are scheduling out towards end of august but can place pt on a wait list . * Telephone Encounter - Victor Manuel Hernandez - 08/01/2024 10:59 AM EDT Tc from [facility] with [facility] confirms received an order for an urgent Ultra sound of the scrotum. Order states to be scheduled at [facility] so they want to make sure that it is okay to schedulewith [facility]. Secondly they are scheduling out towards end of august but can place pt on a wait list . documented in this encounter Plan of Treatment Not on file documented as of this encounter Visit Diagnoses Not on filedocumented in this encounter Care Teams Bisque Placer Relationship Specialty Start Date End Date Iesha Justice MD [address] [place] [phone] PCP - General Family Medicine 03/03/23 documented as of this encounter
--- OUTSIDE RECORDS SUMMARY | 2024-08-01 13:07 | XMS_ITS | Encounter Summary ---
Author Organization [facility] Address [address] [facility] [address] [address] Phone Care Team Providers Care Detailer Furniture Name Role Phone Iesha Justice MD Primary Care Provider [phone] Encounter Details Date Type Department Care Team (Late st Contact Info) Description 03/01/2022 Telephone [facility] [address] [place] [address] Roger Ruelas MD [address] [address] Social History Tobacco Use Types Packs/Day Years Used Date Smoking Tobacco: Never Smokeless Tobacco: Never Alcohol Use Standard Drinks/Week Comments Not Currently 0 (1 standard drink = 0.6 oz pur e alcohol) Sex and Gender Information Value Date Recorded Sex Assigned at Not on file Legal Sex Male 5:06 PM EST Gender Identity Not on file Sexual Orientation Not on file documented as of this encounter Miscellaneous Notes * Telephone Encounter - Hannah Torres - 03/01/2022 11:45 AM EST Pt called he had blood in his urine this past weekend and would like to speak with you before his appt on Tuesday. Please call him back at [phone] Thank you documented in this encounter Plan of Treatment Upcoming Encounters Date Type Department Care Team (Late st Contact Info) Description 11/21/2024 4:15 PM EDT [facility] [address] [address] Roger Ruelas MD [address] [address] documented as of this encounter Visit Diagnoses Not on filedocumented in this encounter Care Teams Detailer Furniture Relationship Specialty Start Date End Date Iesha Justice MD [address] [place] [id number] PCP - General Family Medicine 03/02/23 documented as of this encounter
--- OUTSIDE RECORDS SUMMARY | 2024-08-01 13:07 | XMS_ITS | Encounter Summary ---
Author Organization [facility] Address [address] [facility] [address] [place] [address] Phone Care Team Providers Care Applications Processor Name Role Phone Iesha Justice MD Primary Care Provider [phone] Encounter Details Date Type Department Care Team (Late Contact Info) Description 07/30/2024 Office Communication [facility] [address] [place] [address] Addy Kelsey [address] [address] Social History Tobacco Use Types Packs/Day Years [...] encounter Miscellaneous Notes * Telephone Encounter - Addy Kelsey - 07/30/2024 1:18 PM EDT Pt was not feeling well over the weekend and would like a call to discuss before his appt 08/01 if possible cb# [phone] documented in this encounter Plan of Treatment Upcoming Encounters Date Type Department Care Team (Late Contact Info) Description 11/21/2024 4:15 PM EDT [facility] Visit [facility] [address] [address] Roger Ruelas MD [address] [address] documented as of this encounter Visit Diagnoses Not on filedocumented in this encounter Care Teams Applications Processor Relationship Specialty Start Date End Date Iesha Justice MD [address] [place] [address] PCP - General Family Medicine 03/02/23 documented as of this encounter
--- OUTSIDE RECORDS SUMMARY | 2024-08-01 13:07 | XMS_ITS | Encounter Summary ---
Author Organization [employer] Address [address] [place] [address] Care Team Providers Care Photographic Hand Developer Name Role Phone Iesha Justice MD Primary Care Provider [phone] Encounter Details Date Type Department Care Team ([facility] st Contact Info) Description 01/18/2024 Orders Only [facility] [address] [place], [place] [id number] Festus Vasquez MD [address] [place] [address] Social History Tobacco Use Types Packs/Day Years [...] on filedocumented in this encounter Care Teams Photographic Hand Developer Relationship Specialty Start Date End Date Iesha Justice MD [address] [place] [address] PCP - General Family Medicine 03/03/23 documented as of this encounter
== END 2024-07-31 18:31 | disposition home or self-care (01) ==
LOC: HO.LNP 18:30
PROVIDERS: Visit Provider Family Medicine
DX: R10.32 Left lower quadrant pain (principal)
CPT/HCPCS: 87086